=== PATIENT | male | born 1990 | race African-American/Black ===

== ENCOUNTER → 2018-08-02 | Outpatient (REF) ==
[~2018-08-02] MED LIST: HYDR1CAP2 PO; TRM50T PO
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
--- NOTE | 2018-08-02 11:45 | Diagnostic Imaging Report ---
PROCEDURE: US right lower extremity venous. TECHNIQUE: Multiple Real-time grayscale images were obtained over the right lower extremity in various projections. Additional spectral analysis and color Doppler duplex images were also obtained. INDICATION: Pain to the posterior right lower extremity and lateral malleolar region. FINDINGS: There is no evidence of a right lower extremity DVT. The right lower extremity deep venous system shows normal compressibility with normal response to augmentation and Valsalva. Sonographic interrogation of the area of pain in the Achilles region was also performed. Achilles tendon is visualized and appears to be intact. No peritendinous fluid collection is seen. Minimal subcutaneous fluid is present but otherwise this area is unremarkable. IMPRESSION: 1. No evidence of right lower extremity DVT. 2. Minimal subcutaneous fluid at the area of pain posterior to the lateral malleolus. Dictated by: Dictated on workstation # [id number]
== END | disposition home or self-care (01) ==
LOC: RAD 09:28
PROVIDERS: ATTEND Nurse Practitioner Family
CPT/HCPCS: 73590; 73610

== ENCOUNTER → 2018-11-03 | Outpatient (CLI) | payer OTHER ==
--- NOTE | 2018-11-03 09:08 | Diagnostic Imaging Report ---
PROCEDURE: MR imaging of the brain without contrast. TECHNIQUE: Multiplanar, multisequence MR imaging of the brain was performed without contrast. INDICATION: Memory loss. COMPARISON: No prior MRI brain studies are available for comparison. FINDINGS: The ventricles and sulci are appropriate for the patient's age. No sulcal effacement or midline shift is identified. No acute intra-axial or extra-axial hemorrhage is detected. The diffusion-weighted sequence is unremarkable. No diffusion restriction is identified to suggest acute ischemia. The normal expected flow-voids are identified within the carotid siphons. The corpus callosum and brainstem are unremarkable. The sella and parasellar structures are unremarkable. IMPRESSION: Unremarkable noncontrast MRI of the brain. No acute intracranial process is detected. Dictated by: Dictated on workstation # [id number]
== END ==
LOC: RAD 07:08
PROVIDERS: ATTEND Nurse Practitioner Family
DX: R41.3 Other amnesia (principal)
CPT/HCPCS: 70551

== ENCOUNTER → 2019-08-08 | Outpatient (CLI) | payer OTHER | LOC: ORTHO 08:06 | PROVIDERS: ATTEND Orthopaedic Surgery | DX: M75.81 Other shoulder lesions, right shoulder (principal); M76.52 Patellar tendinitis, left knee; M22.2X2 Patellofemoral disorders, left knee; E66.9 Obesity, unspecified; Z87.891 Personal history of nicotine dependence; Z68.31 Body mass index [BMI] 31.0-31.9, adult | CPT/HCPCS: 99203 ==